=== PATIENT | male | born 1935 | race Caucasian/White ===

== ENCOUNTER 2018-06-09 20:38 | Inpatient (IN) | payer OTHER ==
--- NOTE | 2018-06-09 22:05 | PDOC ---
Attending Attestation - HPI HPI: 06/09/18 23:05 The patient is a 82 year old male, with a significant past medical history of prostate CA s/p prostatectomy, diverticulosis, who presents to the emergency department with 3 days of cramping lower abdominal pain which he reports is 8/ 10 in severity. He reports 2 normal soft brown stools today. He denies blood in his stool. He states he was in urgent care and his BP was elevated. The patient denies chest pain, shortness of breath, headache and dizziness. The patient denies fever, chills, nausea, vomit, diarrhea and constipation. The patient denies dysuria, frequency, urgency and hematuria. Allergies: NKDA PCP: Dr. Mckenna - Physicial Exam PE: 06/09/18 23:06 Constitutional: Awake, alert, oriented. No acute distress. Head: Normocephalic. Atraumatic Eyes: PERRL. EOMI. Conjunctivae are not pale. ENT: Mucous membranes are moist and intact. Posterior pharynx without exudates or erythema. Uvula midline. Neck: Supple. Full ROM. No lymphadenopathy. Cardiovascular: Regular rate. Regular rhythm. S1, S2 regular. Distal pulses are 2+ and symmetric. Pulmonary/Chest: No evidence of respiratory distress. Clear to auscultation bilaterally No wheezing, rales or rhonchi. Abdominal: (+) suprapubic and LLQ tenderness on palpation. Soft and non- distended. No rebound, guarding or rigidity. No organomegaly. No palpable masses. Good bowel sounds. Back: No CVA tenderness. Musculoskeletal: No edema. No cyanosis. No clubbing. Full range of motion in all extremities. Nocalf tenderness. Radial/pedal pulses are intact and 2+ bilaterally Skin: Skin is warm and dry. No petechiae. No purpura. Neurological: Alert and oriented to person, place, and time. Cranial nerves II -XII are grossly intact. Normal speech. Strength is grossly symmetric. No sensory deficits. Psychiatric: Good eye contact. Normal interaction, affect and behavior. - Medical Decision Making 06/09/18 23:06 Documentation prepared by Angela Morataya, acting as medical radiation tech for Apoorva Orr DO <Angela Morataya - Last Filed: 06/09/18 23:05> - Resident Resident Name: Rubi Escobar - ED Attending Attestation I have performed the following: I have examined & evaluated the patient, The case was reviewed & discussed with the resident, I agree w/resident's findings & plan, Exceptions are as noted - Medical Decision Making 06/09/18 22:05 I, Dr. Apoorva Orr, DO, attest that this document has been prepared under my direction and personally reviewed by me in its entirety. I further attest, that it accurately reflects all work, treatment, procedures and medical decision -making performed by me. 06/09/18 23:12 82yo male with lower abd pain -pain onset earlier today with worsening when eating dinner tonight -hx of diverticular disease -felt difficulty with bm today -pt with LLQ and suprapubic abd pain -hx of prostate ca -brown stool, no bleeding, no fevers -ambulates with a steady gait -no cva ttp -will send labs, ct abd/pelvis -will give pain control 06/10/18 01:04 pt with acute diverticulitis on ct will place consult to GI PMD Dr. Mckenna, microblog sent to [facility] for admission 06/10/18 01:25 Dr. Daly at the bedside to eval the patient -accepts pt to service <Apoorva Orr - Last Filed: 06/10/18 01:25>
[2018-06-09] MEDS ORDERED: SODIUM CHLORIDE 1,000 ML IV SCH (22:15)
[2018-06-09] MEDS ORDERED: ACETAMINOPHEN 1000 MG/100 ML VIAL (NON FORMULARY) IVPB ONE (22:15)
--- NOTE | 2018-06-09 22:31 | PDOC ---
History of Present Illness - General Chief Complaint: Pain Stated Complaint: SENT BY PCP Time Seen by Provider: 06/09/18 21:55 History Source: Patient Exam Limitations: No Limitations - History of Present Illness Initial Comments: 06/09/18 22:32 82 year old man with history of HTN, prostate CA, diverticulosis, hypothyroidism , DM who presents with 3 days of waxing and waning cramping lower abdominal pain rated 8/10 to 6/10 that worsened this evening. The patient has had straining with bowel movements today but has had 2 normal soft brown stools. Denies nausea, vomiting, diarrhea, constipation, fever, dysuria, hematuria, retention, incontinence, blood in stool. The patient went to urgent care today and had a urine sample taken, but no blood work and was sent here for abd CT. The patient denies chest pain, shortness of breath, headache, changes in vision or hearing. PSHX: prostectomy, inguinal hernia repair PMHX: as in HPI Past History - Past Medical History Allergies/Adverse Reactions: Allergies Allergy/AdvReac Type Severity Reaction Status Date / Time No Known Allergies Allergy Verified 06/09/18 20:43 Home Medications: Ambulatory Orders Amlodipine Besylate [Norvasc -] 5 mg PO DAILY 10/30/14 Arginine [l-Arginine] 500 mg PO BID 10/30/14 Calcium Carbonate/Vitamin D3 [Vitamin D-3 400 Units Tablet] 1 each PO BID Cranberry Fruit Extract/Vit C [Azo Cranberry Softgel] 1 each PO DAILY 10/30/14 Levocarnitine [l-Carnitine] 500 mg PO DAILY 10/30/14 Levothyroxine [Synthroid -] 125 mcg PO DAILY 10/30/14 Ubidecarenone/Vitamin E Mixed [Coq10 Sg 100 Softgel] 1 each PO DAILY 10/30/14 Anemia: No Asthma: No Cancer: Yes (Prostate) Cardiac Disorders: No CVA: No COPD: No CHF: No Dementia: No Diabetes: No GI Disorders: No Disorders: No HTN: Yes Hypercholesterolemia: No Liver Disease: No Seizures: No Thyroid Disease: Yes - Surgical History Abdominal Surgery: Yes (Bilateral Inguinal Hernia Repair) Appendectomy: No Cardiac Surgery: No Cholecystectomy: No Lung Surgery: No Neurologic Surgery: No Orthopedic Surgery: Yes (Right Rotator Cuff Repair,Right Knee Arthroscopy) - Suicide/Smoking/Psychosocial Hx Smoking History: Never smoked Have you smoked in the past 12 months: No Hx Alcohol Use: Yes (glass of wine a day) Drug/Substance Use Hx: No Substance Use Type: Alcohol Hx Substance Use Treatment: No Review of Systems - Review of Systems Able to Perform ROS?: Yes Is the patient limited Arabic proficient: No Constitutional: No: Chills, Diaphoresis, Fever HEENTM: No: Blurred Vision, Tinnitus Respiratory: No: Cough, Orthopnea, Shortness of Breath Cardiac (ROS): No: Chest Pain, Lightheadedness, Palpitations ABD/GI: Yes: See HPI, Abdominal cramping. No: Constipated, Diarrhea, Nausea, Vomiting : No: Burning, Dysuria, Hematuria Neurological: No: Headache, Numbness, Tingling *Physical Exam - Vital Signs Last Vital Signs Temp Pulse Resp BP Pulse Ox 97.2 F L 76 18 185/90 H 98 06/09/18 20:40 06/09/18 20:40 06/09/18 20:40 06/09/18 20:40 06/09/18 20:40 - Physical Exam Comments: 06/09/18 22:57 GENERAL: Awake, alert, and fully oriented, in no acute distress HEAD: No signs of trauma, normocephalic, atraumatic EYES: EOMI, sclera anicteric, conjunctiva clear ENT: oropharynx clear without exudates. Moist mucosa NECK: Normal ROM, supple LUNGS: No distress, speaks full sentences, clear to auscultation bilaterally HEART: Regular rate and rhythm, normal S1 and S2, no murmurs, rubs or gallops, peripheral pulses normal and equal bilaterally. ABDOMEN: Soft, + tenderness in RLQ, LLQ, normoactive bowel sounds. No guarding , no rebound. No masses EXTREMITIES : Normal inspection, Normal range of motion, no edema. No clubbing or cyanosis. NEUROLOGICAL: Cranial nerves II through XII grossly intact. Normal speech, no focal sensorimotor deficits SKIN: Warm, Dry, normal turgor, no rashes or lesions noted Moderate Sedation - Procedure Monitoring Vital Signs: Procedure Monitoring Vital Signs Temperature 97.2 F L 06/09/18 20:40 Pulse Rate 76 06/09/18 20:40 Respiratory Rate 18 06/09/18 20:40 Blood Pressure 185/90 H 06/09/18 20:40 O2 Sat by Pulse Oximetry (%) 98 06/09/18 20:40 ED Treatment Course - LABORATORY CBC & Chemistry Diagram: 06/09/18 22:48 06/09/18 23:29 Medical Decision Making - Medical Decision Making 06/09/18 22:58 82 year old man with history of HTN, prostate CA, diverticulosis, hypothyroidism , DM who presents with 3 days of waxing and waning cramping lower abdominal pain rated 8/10 to 6/10 that worsened this evening. The patient has had straining with bowel movements today but has had 2 normal soft brown stools. Denies nausea, vomiting, diarrhea, constipation, fever, dysuria, hematuria, retention, incontinence, blood in stool. The patient went to urgent care today and had a urine sample taken, but no blood work and was sent here for abd CT. The patient denies chest pain, shortness of breath, headache, changes in vision or hearing. ED Course: Differential including but not limited to: diverticulitis vs mesenteric ischemia vs colitis. cbc, cmp, ua, ucx, trop, ekg, abdpelvic ct 06/09/18 23:34 cbc: wbc 21 06/10/18 00:53 cmp: elevated BUN, otherwise unremarkable. ua: negative 06/10/18 01:[address]: significant for diverticulitis metronidazole and cipro given EKG: normal sinus rhythm HR 67, no interval abnormalities, narrow QRS, ST and T wave segments and morphology normal. Will admit to medicine for further evaluation and treatment. *DC/Admit/Observation/Transfer Diagnosis at time of Disposition: Diverticulitis - Discharge Dispostion Condition at time of disposition: Stable Decision to Admit order: Yes - Referrals Referrals: Andrew Mckenna MD [Primary Care Provider] - - Patient Instructions - Post Discharge Activity
[2018-06-09] MEDS ORDERED: ACETAMINOPHEN INJECTION 100 ML IVPB ONE (22:58)
[2018-06-09 23:23] LABS: BASO % 0.5 % (0-2.0); EOS % 0.5 % (0-4.5); HEMATOCRIT 45.6 % (35.4-49); HEMOGLOBIN 15.7 GM/dL (11.7-16.9); LYMPH % 7.3 % (8-40); MCH 29.8 pg (25.7-33.7); MCHC 34.4 g/dl (32.0-35.9); MEAN CELL VOLUME 86.4 fl (80-96); MEAN PLT VOLUME 8.4 fl (7.5-11.1); NEUT % 84.7 % (42.8-82.8); PLATELET COUNT 275 K/MM3 (134-434); RBC 5.28 M/mm3 (4.00-5.60); RDW 14.6 % (11.9-15.9); WHITE BLOOD COUNT 21.1 K/mm3 (4.0-10.0)
[2018-06-09 23:48] LABS: URINE APPEARANCE CLEAR; URINE BILIRUBIN NEGATIVE (<2.0 mg/dL); URINE COLOR LTYELLOW; URINE GLUCOSE (UA) NEGATIVE (NEGATIVE); URINE KETONE TRACE (NEGATIVE); URINE LEUK ESTERASE NEGATIVE (NEGATIVE); URINE NITRITE NEGATIVE (NEGATIVE); URINE PROTEIN NEGATIVE (NEGATIVE); URINE UROBILINOGEN NEGATIVE mg/dL (0.2-1.0)
[2018-06-10 00:15] LABS: BLOOD UREA NITROGEN 24 mg/dL (7-18); CHLORIDE 104 mmol/L (98-107); CREATININE 1.1 mg/dL (0.55-1.3); GLUCOSE,RANDOM 129 mg/dL (74-106); POTASSIUM 3.8 mmol/L (3.5-5.1); SODIUM 136 mmol/L (136-145)
[2018-06-10 00:16] LABS: ALBUMIN 2.9 g/dl (3.4-5.0); ALK PHOS 91 U/L (45-117); ANION GAP 9 MMOL/L (8-16); BILIRUBIN,TOTAL 0.4 mg/dL (0.2-1); CALCIUM 8.2 mg/dL (8.5-10.1); CO2 23 mmol/L (21-32); SGOT/AST 18 U/L (15-37); SGPT/ALT 24 U/L (13-61); TOT PROT 5.8 g/dl (6.4-8.2)
[2018-06-10] MEDS ORDERED: CIPROFLOXACIN 400 MG/D5W 400 MG/200 ML IVPB IVPB ONE (01:06)
[2018-06-10] MEDS ORDERED: MORPHINE SULFATE 2 MG/ML VIAL IVPUSH PRN (03:07)
--- NOTE | 2018-06-10 03:21 | HP ---
CHIEF COMPLAINT: PCP:Dr. Mckenna HISTORY OF PRESENT ILLNESS: 82 yo M PMH HTN, prostate CA s/p prostectomy, diverticulosis, hypothyroidism p/ w worsening cramping lower abdominal pain rated 8/10 x3d. Pt endorses eating a lot of food over the the past week, more than usual due to holiday parties. Pt eats a lot of nuts in general. Pt says eating makes his pain worse. The patient has had straining with bowel movements today but has had 2 normal soft brown stools. Denies fevers, cp , sob, ROSADO, n/v/d, constipation, dysuria, hematuria, retention, incontinence, blood in stool. The patient went to urgent care today and had a urine sample taken, but no blood work and was sent here for abd CT. Of note, pt endorses completing yesterday a 5 day course of steroids for tendinitis. ER course was notable for: (1) 1 L NS, tylenol, flagyl (2) CT A/P - sigmoid diverticultitis (3) leukocytosis 21.1, ekg: sinus at 67, Qtc 475, nl axis, nl interval, q waves septally that are age indeterminate, no acute st/t wave findings Recent Travel: PAST MEDICAL HISTORY: diverticulitis x2 episodes in the past PAST SURGICAL HISTORY: Right Rotator Cuff Repair,Right Knee Arthroscopy, Bilateral Inguinal Hernia Repair, prostectomy Social History: Smoking: quit many years ago Alcohol: occasional Drugs: denies Family History: Allergies No Known Allergies Allergy (Verified 06/09/18 20:43) HOME MEDICATIONS: Home Medications Medication Instructions Recorded Amlodipine Besylate [Norvasc -] 5 mg PO DAILY 10/30/14 Arginine [l-Arginine] 500 mg PO BID 10/30/14 Calcium Carbonate/Vitamin D3 1 each PO BID 10/30/14 [Vitamin D-3 400 Units Tablet] Cranberry Fruit Extract/Vit C [Azo 1 each PO DAILY 10/30/14 Cranberry Softgel] Levocarnitine [l-Carnitine] 500 mg PO DAILY 10/30/14 Levothyroxine [Synthroid -] 125 mcg PO DAILY 10/30/14 Ubidecarenone/Vitamin E Mixed 1 each PO DAILY 10/30/14 [Coq10 Sg 100 Softgel] REVIEW OF SYSTEMS as per hpi PHYSICAL EXAMINATION Vital Signs - 24 hr 06/09/18 20:40 Temperature 97.2 F L Pulse Rate 76 Respiratory 18 Rate Blood Pressure 185/90 H O2 Sat by Pulse 98 Oximetry (%) GENERAL: AOX3 HEAD: NCAT EYES: extraocular movements intact, sclera anicteric, conjunctiva clear. No lid lag. EARS, NOSE, THROAT: nares patent, oropharynx clear without exudates. MMM NECK: Normal range of motion, supple without lymphadenopathy, JVD, or masses. LUNGS: CTAB HEART: RRR, normal S1 and S2 without m/r/g ABDOMEN: Soft, TTP diffusely more prominent in lower quadrants + guarding , not distended, hyperactive bowel sounds, no rebound, no masses. MUSCULOSKELETAL: Normal range of motion at all joints. No bony deformities or tenderness. UPPER EXTREMITIES: 2+ pulses, warm, well-perfused. No cyanosis. No clubbing. No peripheral edema. LOWER EXTREMITIES: 2+ pulses, warm, well-perfused. No calf tenderness. No peripheral edema. NEUROLOGICAL: Cranial nerves II-XII intact. Normal speech. PSYCHIATRIC: Cooperative. Good eye contact. Appropriate mood and affect. SKIN: Warm, dry, normal turgor, no rashes or lesions noted, normal capillary refill. Laboratory Results - last 24 hr 06/09/18 06/09/18 06/09/18 22:48 22:48 22:48 WBC 21.1 H RBC 5.28 Hgb 15.7 Hct 45.6 MCV 86.4 MCH 29.8 MCHC 34.4 RDW 14.6 Plt Count 275 MPV 8.4 Absolute Neuts (auto) 17.9 H Total Counted 100 Neutrophils % 84.7 H Neutrophils % (Manual) 84.0 H Band Neutrophils % 1.0 Lymphocytes % 7.3 L Lymphocytes % (Manual) 6.0 L Monocytes % 7.0 Monocytes % (Manual) 5 Eosinophils % 0.5 Eosinophils % (Manual) 1.0 Basophils % 0.5 Basophils % (Manual) 3.0 H Nucleated RBC % 0 Sodium Cancelled Potassium Cancelled Chloride Cancelled Carbon Dioxide Cancelled Anion Gap Cancelled BUN Cancelled Creatinine Cancelled Creat Clearance w eGFR Cancelled Random Glucose Cancelled Lactic Acid Calcium Cancelled Total Bilirubin Cancelled AST Cancelled ALT Cancelled Alkaline Phosphatase Cancelled Troponin I Cancelled Total Protein Cancelled Albumin Cancelled Urine Color Ltyellow Urine Appearance Clear Urine pH 7.0 Ur Specific [place] 1.015 Urine Protein Negative Urine Glucose (UA) Negative Urine Ketones Trace H Urine Blood Negative Urine Nitrite Negative Urine Bilirubin Negative Urine Urobilinogen Negative Ur Leukocyte Esterase Negative 06/09/18 06/09/18 22:48 23:29 WBC RBC Hgb Hct MCV MCH MCHC RDW Plt Count MPV Absolute Neuts (auto) Total Counted Neutrophils % Neutrophils % (Manual) Band Neutrophils % Lymphocytes % Lymphocytes % (Manual) Monocytes % Monocytes % (Manual) Eosinophils % Eosinophils % (Manual) Basophils % Basophils % (Manual) Nucleated RBC % Sodium 136 Potassium 3.8 Chloride 104 Carbon Dioxide 23 Anion Gap 9 BUN 24 H Creatinine 1.1 Creat Clearance w eGFR > 60 Random Glucose 129 H Lactic Acid 1.6 Calcium 8.2 L Total Bilirubin 0.4 AST 18 ALT 24 Alkaline Phosphatase 91 Troponin I Total Protein 5.8 L Albumin 2.9 L Urine Color Urine Appearance Urine pH Ur Specific [place] Urine Protein Urine Glucose (UA) Urine Ketones Urine Blood Urine Nitrite Urine Bilirubin Urine Urobilinogen Ur Leukocyte Esterase ASSESSMENT/PLAN: 82 yo M PMH HTN, prostate CA s/p prostectomy, diverticulosis, hypothyroidism p/ w worsening cramping lower abdominal pain rated 8/10 x3d. Sigmoid diverticulitis - uncomplicated. CT A/P - sigmoid diverticultitis. leukocytosis 21.1 s/p 1 L NS, tylenol, flagyl in ED tx w/ rocephin and flagyl - avoid cipro since he just completed a 5 day course of steroids for tendinitis. transition to PO abx when pt clinically improves and can tolerate PO pain ctl - morphine tylenol uncontrolled hypertension - BP has improved. Will restart his home antihypertensive drugs when can tolerate PO Qtc 475 DM? Check HbA1c. hold PO meds until when can tolerate PO FEN NS 110cc replete prn NPO ppx Lovenox 40 mg SQ qd Full code Dispo med surg Visit type - Emergency Visit Emergency Visit: Yes ED Registration Date: 06/10/18 Care time: The patient presented to the Emergency Department on the above date and was hospitalized for further evaluation of their emergent condition. - New Patient This patient is new to me today: Yes Date on this admission: 06/10/18 - Critical Care Critical Care patient: No
--- NOTE | 2018-06-10 03:23 | PN ---
Teaching Attending Note Name of Resident: Hayden Hall ATTENDING PHYSICIAN STATEMENT I saw and evaluated the patient. I reviewed the resident's note and discussed the case with the resident. I agree with the resident's findings and plan as documented. SUBJECTIVE: Patient is an 82 year old man with history of HTN, prostate CA, diverticulosis, and hypothyroidism who presents with 3 days of waxing and waning cramping lower abdominal pain rated 8/10 to 6/10 that worsened this evening. The patient has had straining with bowel movements today but has had 2 normal soft brown stools. Denies nausea, vomiting, diarrhea, constipation, fever, dysuria, hematuria, retention, incontinence, blood in stool. The patient went to urgent care today and had a urine sample taken, but no blood work and was sent here for abd CT. The patient denies chest pain, shortness of breath, headache, changes in vision or hearing. Just completed a 5 day course of steroids for tendinitis. OBJECTIVE: Alert Vital Signs Period Temp Pulse Resp BP Sys/Fuller Pulse Ox Last 24 Hr 97.2 F 76 18 185/90 98 HEENT: No Jaundice, eye redness or discharge, PERRLA, EOMI. Normocephalic, atraumatic. External ears are normal and hearing is grossly intact. No nasal discharge. Neck: Supple, nontender. No palpable adenopathy or thyromegaly. No JVD Chest: Good effort. Clear to auscultation and percussion. Heart: Regular. No S3, rub or murmur Abdomen: Not distended, soft, mild lower abdominal tenderness and no HSM. No rebound or guarding. Normoactive bowel sounds. Ext: Peripheral pulses intact. No leg edema. Skin: Warm and dry. No petechiae, rash or ecchymosis. Neuro: Alert. Oriented x3. CN 2-12 grossly intact. Sensation grossly intact in all four extremities and DTR are symmetric. Current Medications Generic Name Dose Route Start Last Admin Trade Name Freq PRN Reason Stop Dose Admin Acetaminophen 1,000 mg 06/10/18 03:18 Ofirmev Injection - IVPB Q6H PRN PAIN LEVEL 6-10 Enoxaparin Sodium 40 mg 06/10/18 04:00 Lovenox - SQ DAILY CLAIRE Ceftriaxone Sodium 2 gm/ 100 mls @ 100 mls/hr 06/10/18 10:00 Dextrose IVPB DAILY CLAIRE Metronidazole 500 mg in 100 mls @ 100 mls/hr 06/10/18 10:00 Flagyl 500mg Premixed Ivpb - IVPB Q8H-IV [facility]IRE Sodium Chloride 1,000 mls @ 110 mls/hr 06/10/18 03:15 Normal Saline - IV ASDIR CLAIRE Morphine Sulfate 2 mg 06/10/18 03:07 Morphine Sulfate IVPUSH Q4H PRN PAIN LEVEL 7 - 10 Home Medications Medication Instructions Recorded Amlodipine Besylate [Norvasc -] 5 mg PO DAILY 10/30/14 Arginine [l-Arginine] 500 mg PO BID 10/30/14 Calcium Carbonate/Vitamin D3 1 each PO BID 10/30/14 [Vitamin D-3 400 Units Tablet] Cranberry Fruit Extract/Vit C [Azo 1 each PO DAILY 10/30/14 Cranberry Softgel] Levocarnitine [l-Carnitine] 500 mg PO DAILY 10/30/14 Levothyroxine [Synthroid -] 125 mcg PO DAILY 10/30/14 Ubidecarenone/Vitamin E Mixed 1 each PO DAILY 10/30/14 [Coq10 Sg 100 Softgel] Abnormal Lab Results 06/09/18 06/09/18 06/09/18 22:48 22:48 23:29 WBC 21.1 H Absolute Neuts (auto) 17.9 H Neutrophils % 84.7 H Neutrophils % (Manual) 84.0 H Lymphocytes % 7.3 L Lymphocytes % (Manual) 6.0 L Basophils % (Manual) 3.0 H BUN 24 H Random Glucose 129 H Calcium 8.2 L Total Protein 5.8 L Albumin 2.9 L Urine Ketones Trace H ASSESSMENT AND PLAN: 1. Sigmoid diverticulitis - Confirmed by CT scan. Will treat with rocephin and flagyl - avoid cipro since he just completed a 5 day course of steroids for tendinitis. Check HbAic. 2. Uncontrolled hypertension - BP has improved. Will restart his home antihypertensive drugs to ultimately attain normotension. Nonpharmacologic measures to control hypertension like weight loss, salt restriction and exercise discussed. 3. DVT prophylaxis - Lovenox 40 mg SQ q 24 hours. 4. Advance directives - Full code
[2018-06-10] MEDS: SODIUM CHLORIDE 1,000 ML IV SCH ×2 (04:17→05:50)
[2018-06-10] MEDS: ENOXAPARIN NA (PORCINE) 40 MG/0.4 ML DISP.SYRIN SQ SCH (04:17)
[2018-06-10 06:13] VITALS: BMI 20.9
[2018-06-10 08:09] LABS: BASO % 0.6 % (0-2.0); EOS % 0.9 % (0-4.5); HEMATOCRIT 44.5 % (35.4-49); HEMOGLOBIN 14.1 GM/dL (11.7-16.9); LYMPH % 8.3 % (8-40); MCH 27.7 pg (25.7-33.7); MCHC 31.6 g/dl (32.0-35.9); MEAN CELL VOLUME 87.5 fl (80-96); MEAN PLT VOLUME 8.8 fl (7.5-11.1); NEUT % 82.2 % (42.8-82.8); PLATELET COUNT 248 K/MM3 (134-434); RBC 5.08 M/mm3 (4.00-5.60); RDW 14.5 % (11.9-15.9); WHITE BLOOD COUNT 16.5 K/mm3 (4.0-10.0)
[2018-06-10 08:12] LABS: ALBUMIN 3.2 g/dl (3.4-5.0); ALK PHOS 102 U/L (45-117); ANION GAP 7 MMOL/L (8-16); BILIRUBIN,TOTAL 0.6 mg/dL (0.2-1); BLOOD UREA NITROGEN 20 mg/dL (7-18); CHLORIDE 104 mmol/L (98-107); CO2 28 mmol/L (21-32); CREATININE 1.3 mg/dL (0.55-1.3); GLUCOSE,RANDOM 112 mg/dL (74-106); MAGNESIUM 2.4 mg/dL (1.8-2.4); PHOSPHOROUS 3.2 mg/dL (2.5-4.9); POTASSIUM 3.9 mmol/L (3.5-5.1); SGOT/AST 16 U/L (15-37); SGPT/ALT 22 U/L (13-61); SODIUM 140 mmol/L (136-145); TOT PROT 6.3 g/dl (6.4-8.2)
[2018-06-10] MEDS ORDERED: DEXTROSE 5%-WATER 100 ML IVPB ONE (09:16)
--- NOTE | 2018-06-10 09:16 | EKG ---
Test Reason : Blood Pressure : / mmHG Vent. Rate : 067 BPM Atrial Rate : 067 BPM P-R Int : 154 ms QRS Dur : 124 ms QT Int : 450 ms P-R-T Axes : 023 044 032 degrees QTc Int : 475 ms NORMAL SINUS RHYTHM SEPTAL INFARCT , AGE UNDETERMINED ABNORMAL ECG WHEN COMPARED WITH ECG OF 28-MAR-2003 08:23, QRS DURATION HAS INCREASED SEPTAL INFARCT IS NOW PRESENT T WAVE INVERSION NOW EVIDENT IN ANTERIOR LEADS QT HAS LENGTHENED Confirmed by MARITZA ESPINO, SAROJ ([id number]) on 06/10/2018 9:15:53 AM Referred By: Confirmed By:SAROJ SALAS MD
[2018-06-10] MEDS: ACETAMINOPHEN 1000 MG/100 ML VIAL (NON FORMULARY) IVPB PRN ×2 (09:36→17:27)
[2018-06-10] MEDS ORDERED: CEFTRIAXONE 2 GM in DEXTROSE 5%-WATER 100 ML IVPB SCH (10:00)
--- NOTE | 2018-06-10 11:15 | PN ---
Progress Note, Physician Chief Complaint: Pt sitting in bed in no acute distress. reports mild improvement in abd pain. tolerated clears this am. denies any chest pain, sob, n/v/d - Current Medication List Current Medications: Active Medications Acetaminophen (Ofirmev Injection -) 1,000 mg IVPB Q6H PRN PRN Reason: PAIN LEVEL 6-10 Last Admin: 06/10/18 09:36 Dose: 1,000 mg Amlodipine Besylate (Norvasc -) 2.5 mg PO DAILY [facility] Enoxaparin Sodium (Lovenox -) 40 mg SQ DAILY [facility] Last Admin: 06/10/18 04:17 Dose: 40 mg Ceftriaxone Sodium 2 gm/ (Dextrose) 100 mls @ 100 mls/hr IVPB DAILY [facility] Last Admin: 06/10/18 09:19 Dose: 100 mls/hr Metronidazole (Flagyl 500mg Premixed Ivpb -) 500 mg in 100 mls @ 100 mls/hr IVPB Q8H-IV [facility] Last Admin: 06/10/18 10:23 Dose: 100 mls/hr Sodium Chloride (Normal Saline -) 1,000 mls @ 110 mls/hr IV ASDIR [facility] Last Admin: 06/10/18 05:50 Dose: 110 mls/hr Levothyroxine Sodium (Synthroid -) 125 mcg PO DAILY [facility] Morphine Sulfate (Morphine Sulfate) 2 mg IVPUSH Q4H PRN PRN Reason: PAIN LEVEL 7 - 10 - Objective Vital Signs: Vital Signs Temperature 97.4 F L 06/10/18 06:02 Pulse Rate 63 06/10/18 06:02 Respiratory Rate 20 06/10/18 06:02 Blood Pressure 158/94 06/10/18 06:02 O2 Sat by Pulse Oximetry (%) 97 06/10/18 06:02 Constitutional: Yes: Well Nourished, No Distress, Calm Cardiovascular: Yes: WNL, Regular Rate and Rhythm. No: Murmur Respiratory: Yes: WNL, Regular, CTA Bilaterally. No: Accessory Muscle Use, Rhonchi, SOB, Tachypnea, Wheezes Gastrointestinal: Yes: Normal Bowel Sounds, Soft, Tenderness (LLQ>generalized) Genitourinary: Yes: WNL Extremities: Yes: WNL Edema: No Neurological: Yes: WNL, Alert, Oriented Psychiatric: Yes: WNL, Alert, Oriented Labs: CBC, BMP 06/10/18 07:15 06/10/18 07:15 - ....Imaging Cat Scan: Report Reviewed (sigmoid diverticulitis) Problem List - Problems (1) Diverticulitis Assessment/Plan: improving abd pain better denies n/v wbc count trending down ceftriaxone/flagyl advance diet to fulls transition to po antibx when tolerating regular diet Code(s): K57.92 - DVTRCLI OF INTEST, PART UNSP, W/O PERF OR ABSCESS W/O BLEED (2) Leukocytosis Assessment/Plan: improving as above Code(s): D72.829 - ELEVATED WHITE BLOOD CELL COUNT, UNSPECIFIED (3) HTN (hypertension) Assessment/Plan: controlled continue amlodipine Code(s): I10 - ESSENTIAL (PRIMARY) HYPERTENSION Qualifiers: Hypertension type: essential hypertension Qualified Code(s): I10 - Essential (primary) hypertension (4) Hypothyroid Assessment/Plan: stable continue synthroid Code(s): E03.9 - HYPOTHYROIDISM, UNSPECIFIED
[2018-06-10] MEDS: amLODIPine BESYLATE 2.5 MG TABLET (FP) PO SCH (12:03)
[2018-06-11] MEDS ORDERED: LEVOTHYROXINE NA 125 MCG TABLET (FP) PO SCH (07:00)
[2018-06-11 08:28] LABS: BASO % 0.5 % (0-2.0); EOS % 1.8 % (0-4.5); HEMATOCRIT 42.2 % (35.4-49); HEMOGLOBIN 13.6 GM/dL (11.7-16.9); LYMPH % 11.7 % (8-40); MCH 28.5 pg (25.7-33.7); MCHC 32.2 g/dl (32.0-35.9); MEAN CELL VOLUME 88.3 fl (80-96); MEAN PLT VOLUME 8.7 fl (7.5-11.1); MONO % 8.2 % (3.8-10.2); NEUT % 77.8 % (42.8-82.8); PLATELET COUNT 212 K/MM3 (134-434); RBC 4.78 M/mm3 (4.00-5.60); RDW 14.4 % (11.9-15.9); WHITE BLOOD COUNT 14.2 K/mm3 (4.0-10.0)
[2018-06-11 09:09] LABS: ANION GAP 8 MMOL/L (8-16); BLOOD UREA NITROGEN 15 mg/dL (7-18); CALCIUM 8.8 mg/dL (8.5-10.1); CHLORIDE 102 mmol/L (98-107); CO2 26 mmol/L (21-32); CREATININE 1.3 mg/dL (0.55-1.3); GLUCOSE,RANDOM 89 mg/dL (74-106); MAGNESIUM 2.2 mg/dL (1.8-2.4); PHOSPHOROUS 2.9 mg/dL (2.5-4.9); POTASSIUM 3.9 mmol/L (3.5-5.1); SODIUM 136 mmol/L (136-145)
[2018-06-11] MEDS: amLODIPine BESYLATE 2.5 MG TABLET (FP) PO SCH (10:47)
[2018-06-11] MEDS: ENOXAPARIN NA (PORCINE) 40 MG/0.4 ML DISP.SYRIN SQ SCH (10:47)
--- NOTE | 2018-06-11 11:47 | DS ---
Physical Exam: SUBJECTIVE: Patient seen and examined, ambulating in hallway, no concerns. Tolerating diet well. No nausea, vomiting or diarrhea. Overall feels well. OBJECTIVE: Vital Signs Period Temp Pulse Resp BP Sys/Fuller Pulse Ox Last 24 Hr 98 F-99.0 F 68-72 18-18 142-152/80-84 96 PHYSICAL EXAM GENERAL: The patient is awake, alert, and fully oriented, in no acute distress. HEAD: Normal with no signs of trauma. EYES: PERRL, extraocular movements intact, sclera anicteric, conjunctiva clear. ENT: Ears normal, nares patent, oropharynx clear without exudates, moist mucous membranes. NECK: Trachea midline, full range of motion, supple. LUNGS: Breath sounds equal, clear to auscultation bilaterally, no wheezes, no crackles, no accessory muscle use. HEART: Regular rate and rhythm, S1, S2 ABDOMEN: Soft, mild LLQ tenderness, positive bowel sounds, no voluntary or involuntary guarding or rigidity. EXTREMITIES: 2+ pulses, warm, well-perfused, no edema. NEUROLOGICAL: Cranial nerves II through XII grossly intact. Normal speech, gait normal PSYCH: Normal mood, normal affect. SKIN: Warm, dry, normal turgor, no rashes or lesions noted. LABS Laboratory Results - last 24 hr 06/10/18 06/11/18 06/11/18 07:15 07:30 07:30 WBC 14.2 H RBC 4.78 Hgb 13.6 Hct 42.2 MCV 88.3 MCH 28.5 MCHC 32.2 RDW 14.4 Plt Count 212 MPV 8.7 Absolute Neuts (auto) 11.0 H Neutrophils % 77.8 Lymphocytes % 11.7 D Monocytes % 8.2 Eosinophils % 1.8 D Basophils % 0.5 Nucleated RBC % 0 Sodium 136 Potassium 3.9 Chloride 102 Carbon Dioxide 26 Anion Gap 8 BUN 15 Creatinine 1.3 Creat Clearance w eGFR 52.85 Random Glucose 89 Calcium 8.8 Phosphorus 2.9 Magnesium 2.2 C-Reactive Protein 4.[address] A/P -The lung bases are clear. The liver, spleen, pancreas, adrenal glands and kidneys demonstrate no significant abnormalities. There is a tiny hypodensity within the dome of the liver posteriorly that most likely is benign in nature. However, it is too small to accurately characterize. The gallbladder is clear. There is no evidence of intra-abdominal or retroperitoneal lymphadenopathy or fluid collections. There is no evidence of pneumoperitoneum, bowel obstruction or intra-abdominal abscess. There is no CT evidence of acute appendicitis. There is thickening and irregularity of the mid sigmoid colon with inflammatory changes in the adjacent mesenteric fat. This appearance is consistent with acute diverticulitis. No abscess is associated with this process. Examination of the pelvis demonstrates no evidence of pelvic masses, fluid collections or lymphadenopathy. There is no evidence of acute bony abnormalities. IMPRESSION: Findings consistent with acute sigmoid diverticulitis without abscess formation. Clinical correlation and follow-up recommended. Please see above discussion. Microbiology 06/09/18 22:48 Urine - Urine Clean Catch Urine Culture - Final NO GROWTH OBTAINED HOSPITAL COURSE: Date of Admission:06/10/18 Date of Discharge: 06/11/18 Minutes to complete discharge: 40 Discharge Summary Reason For Visit: DIVERTICULITIS Current Active Problems Diverticulitis (Acute) HTN (hypertension) (Acute) Hypothyroid (Acute) Leukocytosis (Acute) Hospital Course: 82 yo M PMH HTN, prostate CA s/p prostectomy, diverticulosis, hypothyroidism, recent tendinitis p/w worsening cramping lower abdominal pain found with acute uncomplicated sigmoid diverticulitis on CT. He was placed on ceftriaxone and flagyl , his symptoms markedly improved, diet was advanced and he is tolerating solid diet well with no concerns. His WBC count improved and no nausea, vomitting or diarrhea during is stay. He will be discharged on 1 week of augmentin and flagyl. He is advised outpatient colonscopy in 6-8 weeks. Condition: Good - Instructions Diet, Activity, Other Instructions: MEDICATION: Antibiotics augmentin and flagyl as directed for 7 days Continue home medications as before DIET: Soft low residue (avoid nuts/seeds) till symptoms fully resolve, then high fiber diet. ACTIVITY: As tolerated FOLLOW UP; You will need outpatient colonoscopy in 6- 8 weeks once symptoms fully resolved. Please discuss with your doctor for outpatient Gastroenterology referral. Primary care doctor follow up in 1 week. If you notice any new fevers, worsening pain, nausea, vomiting, inability to keep food down, or any new concerns, please call 911 or come to ED immediately. Referrals: Andrew Mckenna MD [Primary Care Provider] - Disposition: HOME - Home Medications Comprehensive Discharge Medication List: Ambulatory Orders Amlodipine Besylate [Norvasc -] 2.5 mg PO DAILY 10/30/14 Arginine [l-Arginine] 500 mg PO BID 10/30/14 Calcium Carbonate/Vitamin D3 [Vitamin D-3 400 Units Tablet] 1 each PO BID Cranberry Fruit Extract/Vit C [Azo Cranberry Softgel] 1 each PO DAILY 10/30/14 Levocarnitine [l-Carnitine] 500 mg PO DAILY 10/30/14 Levothyroxine [Synthroid -] 125 mcg PO DAILY 10/30/14 Ubidecarenone/Vitamin E Mixed [Coq10 Sg 100 Softgel] 1 each PO DAILY 10/30/14 Amoxicillin/Potassium Clav [Augmentin 875-125 Tablet] 1 each PO BID #14 tablet 06/11/18 metroNIDAZOLE [Flagyl -] 500 mg PO TID #21 tablet 06/11/18 This patient is new to me today: Yes Date on this admission: 06/11/18 Emergency Visit: No Critical Care patient: No - Discharge Referral Referred to [facility] No
[2018-06-11 12:57] VITALS: BP 139/74; PULSE 72; TEMP 98.1
== END 2018-06-11 12:45 | disposition home or self-care (01) | DRG 392 ==
LOC: JER 20:38 → JERBED 06-10 01:25 → J6S 06-10 05:19
PROVIDERS: ADMIT Internal Medicine; ATTEND Hospitalist
DX: K57.32 Diverticulitis of large intestine without perforation or abscess without bleeding (principal); I10 Essential (primary) hypertension; D72.829 Elevated white blood cell count, unspecified; E03.9 Hypothyroidism, unspecified; Z85.46 Personal history of malignant neoplasm of prostate; Z90.79 Acquired absence of other genital organ(s); Z87.891 Personal history of nicotine dependence
CPT/HCPCS: 36415; 74177-TC; 80048; 80053; 81003; 83036; 83605; 83735; 84100; 85025; 86140; 87086; 93005; 93010; 99283-25; J0131; J7030

== ENCOUNTER 2019-01-25 05:55 | Day surgery (SDC) | payer OTHER ==
[2019-01-19 15:08] VITALS: BMI 23.5
[2019-01-25] MEDS ORDERED: TAMSULOSIN HCL 0.4 MG CAP ONE (06:39)
[2019-01-25] MEDS ORDERED: BUPIVACAINE HCL/PF 0.5% (5 MG/ML) 30 ML VIAL IJ ONE (07:25)
[2019-01-25] MEDS ORDERED: SODIUM CHLORIDE 0.9% P/F 10 ML VIAL IJ ONE (07:26)
[2019-01-25] MEDS ORDERED: MIDAZOLAM HCL 2 MG/2 ML SINGLE DOSE VIAL ONE (07:26)
[2019-01-25] MEDS ORDERED: PROPOFOL 20 ML ONE (07:56)
[2019-01-25] MEDS ORDERED: ROCURONIUM BROMIDE 50 MG/5 ML SYRINGE ONE ×2 (07:56→09:05)
[2019-01-25] MEDS ORDERED: fentaNYL CITRATE 250 MCG/5 ML VIAL ONE (07:56)
[2019-01-25] MEDS ORDERED: SUCCINYLCHOLINE CHLORIDE 200 MG/10 ML SYRINGE ONE (07:56)
[2019-01-25] MEDS ORDERED: ceFAZolin SODIUM 1 GM VIAL IVPB ONE (08:07)
[2019-01-25] MEDS ORDERED: ONDANSETRON 4 MG/2 ML VIAL ONE (08:12)
[2019-01-25] MEDS ORDERED: KETOROLAC TROMETHAMINE 30 MG/1 ML VIAL ONE (08:12)
[2019-01-25] MEDS ORDERED: DEXAMETHASONE SOD PHOSPHATE 4 MG/1 ML VIAL ONE (08:12)
[2019-01-25] MEDS ORDERED: LIDOCAINE HCL/PF 2% SDV 5ML VIAL ONE (08:12)
[2019-01-25] MEDS ORDERED: ceFAZolin SODIUM 1 GM VIAL ONE (08:12)
[2019-01-25] MEDS ORDERED: LIDOCAINE HCL 2% JELLY (5 ML/TUBE) ONE (08:12)
[2019-01-25] MEDS ORDERED: ePHEDrine SULFATE 50 MG/1 ML AMPULE ONE (08:15)
[2019-01-25] MEDS ORDERED: NEOSTIGMINE METHYLSULFATE 0.5 MG/ML - 10 ML MDV ONE (09:05)
[2019-01-25] MEDS ORDERED: GLYCOPYRROLATE 0.2 MG/1 ML VIAL ONE (09:05)
[2019-01-25] MEDS ORDERED: oxyCODONE HCL 5 MG TABLET ONE (11:18)
[2019-01-25] MEDS ORDERED: ONDANSETRON 4 MG/2 ML VIAL IVPUSH PRN (12:18)
[2019-01-25] MEDS ORDERED: oxyCODONE HCL 5 MG TABLET PO PRN ×2 (12:18)
[2019-01-25] MEDS ORDERED: PROMETHAZINE HCL 25 MG/1 ML VIAL IVPB PRN (12:18)
[2019-01-25 15:21] VITALS: BP 124/74; PULSE 57; TEMP 97.7
--- NOTE | 2019-01-25 22:55 | OP ---
DATE OF OPERATION: 01/25/2019 PREOPERATIVE DIAGNOSIS: Recurrent, incarcerated left inguinal hernia. POSTOPERATIVE DIAGNOSIS: Recurrent, incarcerated left inguinal hernia (direct and femoral components). PROCEDURE: Open repair of recurrent, incarcerated left inguinal hernia with mesh/intermediate wound closure (8 cm). OPERATING SURGEON: Vi Quinn MD ROUTING CLERK: Jake Hendricks MD ANESTHESIA: Freddie Mayer MD (general) HISTORY: This is an 83-year-old man who had undergone a remote open left inguinal hernia repair in the 1950s. He has also had a radical prostatectomy. More recently, he developed pain at the level of the left groin after playing tennis. It was initially difficult to examine him, but after the acute episode resolved, he was left with a mass at the level of the left groin, which, on CT scan, was consistent with a fat-containing hernia. Patient presents to undergo definitive management. DESCRIPTION OF PROCEDURE: With the patient in the supine position, and after general anesthesia, the left groin was prepped and draped in sterile fashion using chlorhexidine. An 8-cm left groin incision was made in the pre-existing scar and deepened into the subcutaneous space. The subcutaneous fat and scar tissue were divided, ultimately arriving at the external oblique aponeurosis. The external oblique aponeurosis was opened in the direction of its fibers through the external ring. There was significant scarring in the inguinal canal. No ilioinguinal nerve could be identified amidst the scarring. Exploration initially revealed an incarcerated direct inguinal hernia at the level of the distal floor. There was also a very capacious internal ring. The attenuated transversalis fascia was divided throughout its entire length after mobilization of the cord which was very atrophic and densely adherent to the shelving edge of the inguinal ligament. The preperitoneal tissues were further reduced, reducing the direct component. The patient is quite thin, and there was significant laxity of the femoral ring appreciated as well. Difficult to ascertain whether this was a true femoral hernia. Nonetheless, a small plug was placed in the femoral canal from the medial approach. A large Davol plug was then placed in the preperitoneal space and fashioned circumferentially using interrupted 2-0 Prolene sutures. The attenuated transversalis fascia was then imbricated in 2 layers over the Davol plug, using 2-0 Prolene suture. The suture began at the level of the pubic tubercle, progressed superiorly, and reconstructed the internal ring to permit only fingertip entrance and then returned to the pubic tubercle where it was tied to itself. A 4 x 6 cm piece of ProGrip mesh was then placed over the inguinal canal. It was keyholed superiorly where it was wrapped around the cord. The external oblique aponeurosis was then closed using interrupted 3-0 Vicryl sutures. After adequate hemostasis, the wound was closed in layers. Nga fascia was approximated using interrupted 3-0 chromic suture. Subcuticular layer was approximated with interrupted 4-0 Biosyn suture. The skin edges were approximated using metallic clips. COUNT: Needle, sponge, and instrument count correct. ESTIMATED BLOOD LOSS: Minimal. SPECIMEN: None. DRAINS: None. Patient tolerated the procedure and was transferred from the OR. VI QUINN M.D. [id number] cc: Andrew Mckenna MD MTDD
== END 2019-01-25 15:05 | disposition home or self-care (01) ==
LOC: FASU 05:55
PROVIDERS: ATTEND Surgery
PROC: 0YU60JZ Supplement Left Inguinal Region with Synthetic Substitute, Open Approach (ICD-10-PCS; principal; 2019-01-25 08:00)
DX: K40.31 Unilateral inguinal hernia, with obstruction, without gangrene, recurrent (principal)
CPT/HCPCS: 94760

== ENCOUNTER 2020-09-28 06:53 | Emergency (ER) | payer OTHER ==
[2020-09-28 07:07] VITALS: BP 164/94; PULSE 65; TEMP 97.7; BMI 23.5
[2020-09-28] MEDS ORDERED: SODIUM CHLORIDE 0.9% 1000 ML INFUS.BAG IV ONE (07:18)
[2020-09-28] MEDS ORDERED: ACETAMINOPHEN 1000 MG/100 ML VIAL (NON FORMULARY) IVPB ONE (07:18)
[2020-09-28] MEDS ORDERED: MAG HYDROX/AL HYDROX/SIMETH 30 ML UNIT-DOSE CUP PO ONE (07:18)
[2020-09-28] MEDS ORDERED: ACETAMINOPHEN INJECTION 100 ML IVPB ONE (07:43)
[2020-09-28] MEDS ORDERED: MAG HYDROX/AL HYDROX/SIMETH 30 ML UNIT-DOSE CUP ONE (07:43)
[2020-09-28 08:24] LABS: RDW 13.1 % (11.9-15.9); WHITE BLOOD COUNT 11.4 K/mm3 (4.0-10.8)
[2020-09-28 08:27] LABS: HEMATOCRIT 43.6 % (35.4-49); MCH 30.4 pg (25.7-33.7); MCHC 34.5 g/dl (32.0-35.9); MEAN CELL VOLUME 88.1 fl (80-96); MEAN PLT VOLUME 9.2 fl (7.5-11.1); PLATELET COUNT 226 K/MM3 (134-434); RBC 4.95 M/mm3 (4.00-5.60)
[2020-09-28 08:32] LABS: ALBUMIN 4.2 g/dl (3.4-5.0); BILIRUBIN,TOTAL 0.6 mg/dl (0.2-1); CALCIUM 9.8 mg/dl (8.5-10); CREATININE 1.2 mg/dl (0.55-1.3); TOT PROT 7.1 g/dl (6.4-8.2)
[2020-09-28 09:32] LABS: PLATELET ESTIMATE ADEQUATE
[2020-09-28] MEDS ORDERED: metroNIDAZOLE 250 MG TABLET PO ONE (09:59)
[2020-09-28] MEDS ORDERED: levoFLOXacin 750 MG TABLET PO SCH (10:00)
[2020-09-28] MEDS ORDERED: metroNIDAZOLE 250 MG TABLET ONE (10:25)
== END 2020-09-28 10:30 | disposition home or self-care (01) ==
LOC: FER 06:53
PROC: 3E033NZ Introduction of Analgesics, Hypnotics, Sedatives into Peripheral Vein, Percutaneous Approach (ICD-10-PCS; principal; 2020-09-28)
DX: K57.92 Diverticulitis of intestine, part unspecified, without perforation or abscess without bleeding (principal)
CPT/HCPCS: 36415; 74177-TC; 80053; 81003; 81015; 83605; 83690; 85025; 99285-25; J0131; Q9967

== ENCOUNTER 2021-03-06 04:50 | Day surgery (SDC) | payer OTHER ==
[2021-03-04 15:18] VITALS: BMI 23.5
[2021-03-06 11:39] VITALS: TEMP 97.3
[2021-03-06 12:05] VITALS: BP 151/72
[2021-03-06 12:34] VITALS: PULSE 55
== END 2021-03-06 12:53 | disposition home or self-care (01) ==
LOC: JASU-ENDO 04:50
PROVIDERS: ATTEND Internal Medicine Gastroenterology
PROC: 0DJD8ZZ Inspection of Lower Intestinal Tract, Via Natural or Artificial Opening Endoscopic (ICD-10-PCS; principal; 2021-03-06 11:10)
DX: Z12.11 Encounter for screening for malignant neoplasm of colon (principal)

== ENCOUNTER 2021-05-22 10:26 | Inpatient (IN) | payer OTHER ==
[2021-05-22 12:02] LABS: ALBUMIN 3.1 g/dl (3.4-5.0); BILIRUBIN,TOTAL 0.6 mg/dl (0.2-1); CALCIUM 9.4 mg/dl (8.5-10); CREATININE 1.3 mg/dl (0.55-1.3); TOT PROT 6.1 g/dl (6.4-8.2)
[2021-05-22 12:40] LABS: EOS % 3.4 % (0-4.5); HEMATOCRIT 36.3 % (35.4-49); HEMOGLOBIN 12.3 GM/dL (11.7-16.9); MCH 28.1 pg (25.7-33.7); MCHC 33.8 g/dl (32.0-35.9); MEAN PLT VOLUME 8.7 fl (7.5-11.1); MONO % 11.1 % (3.8-10.2); NEUT % 77.5 % (42.8-82.8); PLATELET COUNT 269 10^3/uL (134-434); RBC 4.37 M/mm3 (4.00-5.60); RDW 14.4 % (11.9-15.9); WHITE BLOOD COUNT 8.1 K/mm3 (4.0-10.0)
[2021-05-23 04:07] VITALS: BMI 23.4
[2021-05-23] MEDS: HEPARIN NA (PORCINE) 5,000 UNITS/ML 1ML VIAL SQ SCH ×4 (06:50→14:00)
[2021-05-23] MEDS: LEVOTHYROXINE NA 125 MCG TABLET (FP) PO SCH (06:51)
[2021-05-23 09:07] LABS: BASO % 1.1 % (0-2.0); EOS % 5.8 % (0-4.5); HEMATOCRIT 36.9 % (35.4-49); HEMOGLOBIN 12.5 GM/dL (11.7-16.9); LYMPH % 6.4 % (8-40); MCHC 33.7 g/dl (32.0-35.9); MEAN CELL VOLUME 83.1 fl (80-96); MEAN PLT VOLUME 8.6 fl (7.5-11.1); MONO % 10.5 % (3.8-10.2); NEUT % 76.2 % (42.8-82.8); PLATELET COUNT 271 10^3/uL (134-434); RBC 4.45 M/mm3 (4.00-5.60); RDW 14.2 % (11.9-15.9); WHITE BLOOD COUNT 8.7 K/mm3 (4.0-10.0)
[2021-05-23 09:30] LABS: BLOOD UREA NITROGEN 17.9 mg/dL (7-18); CALCIUM 9.4 mg/dL (8.5-10.1)
[2021-05-23 09:31] LABS: ALBUMIN 2.6 g/dl (3.4-5.0); MAGNESIUM 2.3 mg/dL (1.8-2.4)
[2021-05-23 09:34] LABS: CREATININE 1.1 mg/dL (0.55-1.3)
[2021-05-23 09:35] LABS: BILIRUBIN,TOTAL 0.4 mg/dL (0.2-1); TOT PROT 6.6 g/dl (6.4-8.2)
[2021-05-23] MEDS: amLODIPine BESYLATE 5 MG TABLET (FP) PO SCH (09:40)
[2021-05-23 16:57] LABS: INR 1.26 (0.83-1.09); PROTHROMBIN TIME (PATIENT) 14.1 SEC (9.7-13.0)
[2021-05-23 17:46] LABS: BF WBC & OTHER NUCLEATED CELLS 3768 /mm3
[2021-05-23 17:55] LABS: BODY FLUID MONOCYTE 10 %; BODYL FLD EOSINOPHIL 3 %
[2021-05-23 17:56] LABS: BODY FLUID MACROPHAGES 5 %
[2021-05-24] MEDS: LEVOTHYROXINE NA 125 MCG TABLET (FP) PO SCH (06:24)
[2021-05-24] MEDS: amLODIPine BESYLATE 5 MG TABLET (FP) PO SCH (09:23)
[2021-05-24 10:35] LABS: BASO % 0.9 % (0-2.0); EOS % 3.6 % (0-4.5); HEMOGLOBIN 12.3 GM/dL (11.7-16.9); LYMPH % 6.1 % (8-40); MCH 28.8 pg (25.7-33.7); MCHC 34.3 g/dl (32.0-35.9); MEAN CELL VOLUME 84.2 fl (80-96); MEAN PLT VOLUME 8.7 fl (7.5-11.1); MONO % 9.3 % (3.8-10.2); NEUT % 80.1 % (42.8-82.8); PLATELET COUNT 286 10^3/uL (134-434); RBC 4.28 M/mm3 (4.00-5.60); RDW 14.4 % (11.9-15.9)
[2021-05-24 11:01] LABS: MAGNESIUM 2.2 mg/dL (1.8-2.4)
[2021-05-24 11:04] LABS: PHOSPHOROUS 3.2 mg/dL (2.5-4.9)
[2021-05-24] MEDS: ENOXAPARIN NA (PORCINE) 40 MG/0.4 ML DISP.SYRIN SQ SCH (11:07)
[2021-05-25] MEDS: LEVOTHYROXINE NA 125 MCG TABLET (FP) PO SCH (06:20)
[2021-05-25] MEDS: amLODIPine BESYLATE 5 MG TABLET (FP) PO SCH (10:33)
[2021-05-25] MEDS: ENOXAPARIN NA (PORCINE) 40 MG/0.4 ML DISP.SYRIN SQ SCH (10:33)
[2021-05-25 11:39] LABS: EOS % 4.2 % (0-4.5); HEMATOCRIT 38.3 % (35.4-49); HEMOGLOBIN 13.3 GM/dL (11.7-16.9); LYMPH % 6.8 % (8-40); MCHC 34.6 g/dl (32.0-35.9); MEAN CELL VOLUME 83.7 fl (80-96); MEAN PLT VOLUME 8.4 fl (7.5-11.1); MONO % 10.5 % (3.8-10.2); NEUT % 78.5 % (42.8-82.8); PLATELET COUNT 300 10^3/uL (134-434); RBC 4.58 M/mm3 (4.00-5.60); RDW 14.3 % (11.9-15.9); WHITE BLOOD COUNT 10.5 K/mm3 (4.0-10.0)
[2021-05-25 11:55] LABS: BLOOD UREA NITROGEN 19.5 mg/dL (7-18); CALCIUM 9.2 mg/dL (8.5-10.1); MAGNESIUM 2.2 mg/dL (1.8-2.4)
[2021-05-25 11:58] LABS: PHOSPHOROUS 3.3 mg/dL (2.5-4.9)
[2021-05-25 11:59] LABS: CREATININE 1.3 mg/dL (0.55-1.3)
[2021-05-25] MEDS ORDERED: MELATONIN 5 MG TABLETS PO PRN (20:26)
[2021-05-26] MEDS: LEVOTHYROXINE NA 125 MCG TABLET (FP) PO SCH (06:02)
[2021-05-26] MEDS: ENOXAPARIN NA (PORCINE) 40 MG/0.4 ML DISP.SYRIN SQ SCH (09:39)
[2021-05-26] MEDS: amLODIPine BESYLATE 5 MG TABLET (FP) PO SCH (09:40)
[2021-05-26 11:06] LABS: BLOOD UREA NITROGEN 21.1 mg/dL (7-18); CALCIUM 9.3 mg/dL (8.5-10.1); MAGNESIUM 2.4 mg/dL (1.8-2.4)
[2021-05-26 11:07] LABS: BASO % 0.9 % (0-2.0); EOS % 4.5 % (0-4.5); HEMATOCRIT 39.1 % (35.4-49); HEMOGLOBIN 13.1 GM/dL (11.7-16.9); LYMPH % 7.3 % (8-40); MCH 28.1 pg (25.7-33.7); MCHC 33.5 g/dl (32.0-35.9); MEAN PLT VOLUME 8.7 fl (7.5-11.1); MONO % 10.4 % (3.8-10.2); NEUT % 76.9 % (42.8-82.8); PLATELET COUNT 320 10^3/uL (134-434); RBC 4.65 M/mm3 (4.00-5.60); RDW 14.2 % (11.9-15.9); WHITE BLOOD COUNT 10.5 K/mm3 (4.0-10.0)
[2021-05-26 11:09] LABS: PHOSPHOROUS 3.2 mg/dL (2.5-4.9)
[2021-05-26 11:10] LABS: CREATININE 1.2 mg/dL (0.55-1.3)
[2021-05-27] MEDS: LEVOTHYROXINE NA 125 MCG TABLET (FP) PO SCH (06:16)
[2021-05-27] MEDS: ENOXAPARIN NA (PORCINE) 40 MG/0.4 ML DISP.SYRIN SQ SCH (09:10)
[2021-05-27] MEDS: amLODIPine BESYLATE 5 MG TABLET (FP) PO SCH (09:14)
[2021-05-27 10:02] LABS: CALCIUM 9.7 mg/dL (8.5-10.1); PHOSPHOROUS 3.2 mg/dL (2.5-4.9)
[2021-05-27 10:03] LABS: ALBUMIN 2.7 g/dl (3.4-5.0); MAGNESIUM 2.4 mg/dL (1.8-2.4)
[2021-05-27 10:04] LABS: BILIRUBIN,TOTAL 0.5 mg/dL (0.2-1); CREATININE 1.2 mg/dL (0.55-1.3); TOT PROT 6.8 g/dl (6.4-8.2)
[2021-05-27 10:10] LABS: EOS % 5.3 % (0-4.5); HEMATOCRIT 39.6 % (35.4-49); HEMOGLOBIN 13.1 GM/dL (11.7-16.9); LYMPH % 6.8 % (8-40); MEAN CELL VOLUME 84.8 fl (80-96); MEAN PLT VOLUME 8.8 fl (7.5-11.1); MONO % 10.6 % (3.8-10.2); NEUT % 76.3 % (42.8-82.8); PLATELET COUNT 317 10^3/uL (134-434); RBC 4.67 M/mm3 (4.00-5.60); RDW 14.9 % (11.9-15.9); WHITE BLOOD COUNT 9.2 K/mm3 (4.0-10.0)
[2021-05-27 14:17] LABS: BODY FLUID ALBUMIN 2.5 g/dL (Not Estab.)
[2021-05-28 03:28] VITALS: PULSE 64
[2021-05-28] MEDS: LEVOTHYROXINE NA 125 MCG TABLET (FP) PO SCH (05:59)
[2021-05-28 09:02] LABS: ALBUMIN 2.7 g/dl (3.4-5.0)
[2021-05-28 09:03] LABS: CALCIUM 9.6 mg/dL (8.5-10.1); MAGNESIUM 2.3 mg/dL (1.8-2.4)
[2021-05-28 09:05] LABS: CREATININE 1.1 mg/dL (0.55-1.3); PHOSPHOROUS 3.2 mg/dL (2.5-4.9)
[2021-05-28 09:07] LABS: BILIRUBIN,TOTAL 0.5 mg/dL (0.2-1); TOT PROT 6.6 g/dl (6.4-8.2)
[2021-05-28 09:37] LABS: BASO % 0.8 % (0-2.0); EOS % 6.6 % (0-4.5); HEMATOCRIT 37.6 % (35.4-49); HEMOGLOBIN 12.6 GM/dL (11.7-16.9); LYMPH % 9.6 % (8-40); MCH 28.2 pg (25.7-33.7); MCHC 33.4 g/dl (32.0-35.9); MEAN CELL VOLUME 84.3 fl (80-96); MONO % 9.1 % (3.8-10.2); NEUT % 73.9 % (42.8-82.8); PLATELET COUNT 300 10^3/uL (134-434); RBC 4.46 M/mm3 (4.00-5.60); RDW 14.8 % (11.9-15.9); WHITE BLOOD COUNT 8.7 K/mm3 (4.0-10.0)
[2021-05-28] MEDS: ENOXAPARIN NA (PORCINE) 40 MG/0.4 ML DISP.SYRIN SQ SCH (09:54)
[2021-05-28] MEDS: amLODIPine BESYLATE 5 MG TABLET (FP) PO SCH (09:54)
[2021-05-28 13:55] VITALS: TEMP 98
[2021-05-28 14:12] VITALS: BP 134/66
== END 2021-05-28 18:17 | disposition home or self-care (01) | DRG 188 ==
LOC: FER 10:26 → J6S 05-23 03:00
PROVIDERS: ADMIT Internal Medicine; ATTEND Internal Medicine
PROC: 0W9930Z Drainage of Right Pleural Cavity with Drainage Device, Percutaneous Approach (ICD-10-PCS; principal; 2021-05-23)
DX: J90 Pleural effusion, not elsewhere classified (principal); E03.9 Hypothyroidism, unspecified; I10 Essential (primary) hypertension; R42 Dizziness and giddiness; F12.90 Cannabis use, unspecified, uncomplicated; G47.33 Obstructive sleep apnea (adult) (pediatric)
CPT/HCPCS: 32557; 36415; 71045-TC-FY; 71046-TC-FY; 71275-TC; 74176-TC; 80048; 80053; 81003; 81015; 82042; 82150; 82550; 82945; 83615; 83735; 83986; 84100; 84157; 84439; 84443; 84478; 84484; 85025; 85610; 87070; 87075; 87086; 87102; 87116; 87205; 87206; 87210; 88108; 88305-TC; 93005; 93306-TC; 94010; 97116-GP; 97161-GP; 99285-25; C9803; J1644; Q9967; U0003; U0005

== ENCOUNTER 2021-09-21 14:05 | Emergency (ER) | payer OTHER ==
[2021-09-21 14:26] VITALS: BP 179/74; PULSE 56; TEMP 97.8; BMI 24.0
== END 2021-09-21 15:30 | disposition home or self-care (01) ==
LOC: FER 14:05
DX: S86.912A Strain of unspecified muscle(s) and tendon(s) at lower leg level, left leg, initial encounter (principal); Y93.73 Activity, racquet and hand sports
CPT/HCPCS: 73562-TC-LT-FY; 99283-25

== ENCOUNTER 2022-02-20 06:58 | Day surgery (SDC) | payer OTHER ==
[2022-02-19 09:08] VITALS: BMI 21.7
[2022-02-20] MEDS ORDERED: LIDOCAINE HCL 2% 100 MG/5 ML DISP.SYRIN ONE (08:17)
[2022-02-20] MEDS ORDERED: PROPOFOL 20 ML ONE (08:17)
[2022-02-20] MEDS ORDERED: MIDAZOLAM HCL 2 MG/2 ML SINGLE DOSE VIAL ONE (08:17)
[2022-02-20] MEDS ORDERED: BUPIVACAINE HCL/PF 2.5 MG/ML - 30 ML VIAL IJ ONE (08:22)
[2022-02-20] MEDS ORDERED: ceFAZolin SODIUM 1 GM VIAL ONE (08:37)
[2022-02-20] MEDS ORDERED: DEXAMETHASONE SOD PHOSPHATE 4 MG/1 ML VIAL ONE (08:38)
[2022-02-20] MEDS ORDERED: KETOROLAC TROMETHAMINE 30 MG/1 ML VIAL ONE (08:38)
[2022-02-20] MEDS ORDERED: ONDANSETRON 4 MG/2 ML VIAL ONE (08:38)
[2022-02-20] MEDS ORDERED: BUPIVACAINE HCL/PF 0.25% (2.5MG/ML) 10 ML VIAL STI ONE (09:10)
[2022-02-20] MEDS ORDERED: PROMETHAZINE HCL 25 MG/1 ML VIAL IVPUSH PRN (09:27)
[2022-02-20] MEDS ORDERED: oxyCODONE HCL 5 MG TABLET PO PRN ×2 (09:27)
[2022-02-20] MEDS ORDERED: ONDANSETRON 4 MG/2 ML VIAL IVPUSH PRN (09:27)
[2022-02-20] MEDS ORDERED: LACTATED RINGERS SOLUTION 1,000 ML IV SCH (09:30)
[2022-02-20 10:30] VITALS: RESP 16; TEMP 97.5
[2022-02-20 11:17] VITALS: BP 123/69; PULSE 71
== END 2022-02-20 11:10 | disposition home or self-care (01) ==
LOC: FASU 06:58
PROVIDERS: ATTEND Orthopaedic Surgery
PROC: 0SBD4ZZ Excision of Left Knee Joint, Percutaneous Endoscopic Approach (ICD-10-PCS; principal; 2022-02-20 08:55)
DX: S83.242A Other tear of medial meniscus, current injury, left knee, initial encounter (principal); S83.282A Other tear of lateral meniscus, current injury, left knee, initial encounter; S83.8X2A Sprain of other specified parts of left knee, initial encounter; M65.862 Other synovitis and tenosynovitis, left lower leg; X58.XXXA Exposure to other specified factors, initial encounter; Y93.9 Activity, unspecified; Y92.9 Unspecified place or not applicable
CPT/HCPCS: 94760

== ENCOUNTER 2023-04-15 16:08 | Observation (INO) | payer OTHER ==
[2023-04-15 17:43] LABS: BASO % 0.6 % (0-2.0); EOS % 1.5 % (0-4.5); HEMATOCRIT 28.4 % (35.4-49); HEMOGLOBIN 9.3 GM/dL (11.7-16.9); LYMPH % 3.4 % (8-40); MCHC 32.8 g/dl (32.0-35.9); MEAN CELL VOLUME 103.7 fl (80-96); MEAN PLT VOLUME 7.9 fl (7.5-11.1); MONO % 7.7 % (3.8-10.2); NEUT % 86.8 % (42.8-82.8); PLATELET COUNT 303 10^3/uL (134-434); RBC 2.74 M/mm3 (4.00-5.60); RDW 17.1 % (11.9-15.9); WHITE BLOOD COUNT 8.1 K/mm3 (4.0-10.0)
[2023-04-15 17:55] LABS: INR 1.16 (0.83-1.09); PROTHROMBIN TIME (PATIENT) 13.4 SEC (9.7-13.0)
[2023-04-15 18:01] LABS: POTASSIUM 4.4 mmol/L (3.5-5.1)
[2023-04-15 18:03] LABS: CALCIUM 8.9 mg/dL (8.5-10.1)
[2023-04-15 18:04] LABS: ALBUMIN 3.4 g/dl (3.4-5.0)
[2023-04-15 18:07] LABS: CREATININE 1.5 mg/dL (0.55-1.3)
[2023-04-15 18:09] LABS: BILIRUBIN,TOTAL 1.1 mg/dL (0.2-1)
[2023-04-15] MEDS ORDERED: SODIUM CHLORIDE 0.9% 500 ML INFUS.BAG IV ONE (21:07)
[2023-04-15] MEDS ORDERED: HEPARIN NA (PORCINE) 5,000 UNITS/ML 1ML VIAL ONE (22:59)
[2023-04-15] MEDS: HEPARIN NA (PORCINE) 5,000 UNITS/ML 1ML VIAL SQ SCH (23:06)
[2023-04-16] MEDS ORDERED: PIPERACILLIN/TAZOB 3.375 GM 3.375 GM in DEXTROSE 5%-WATER - 50 ML IVPB SCH (05:45)
[2023-04-16] MEDS ORDERED: LEVOTHYROXINE NA 50 MCG TABLET (FP) ONE (05:50)
[2023-04-16] MEDS ORDERED: PIPERACILLIN/TAZOB 3.375 GM 3.375 GM/50 ML BAG IVPB ONE (05:50)
[2023-04-16] MEDS ORDERED: LEVOTHYROXINE NA 75 MCG TABLET (FP) ONE (05:50)
[2023-04-16] MEDS ORDERED: HEPARIN NA (PORCINE) 5,000 UNITS/ML 1ML VIAL ONE (05:51)
[2023-04-16] MEDS: PIPERACILLIN/TAZOB 3.375 GM 3.375 GM in DEXTROSE 5%-WATER - 50 ML IVPB SCH ×2 (06:15→15:57)
[2023-04-16] MEDS: HEPARIN NA (PORCINE) 5,000 UNITS/ML 1ML VIAL SQ SCH ×2 (06:16→14:11)
[2023-04-16] MEDS ORDERED: LEVOTHYROXINE NA 125 MCG TABLET (FP) PO SCH (07:00)
[2023-04-16 07:49] LABS: BASO % 1.2 % (0-2.0); EOS % 2.1 % (0-4.5); HEMATOCRIT 29.2 % (35.4-49); HEMOGLOBIN 9.7 GM/dL (11.7-16.9); LYMPH % 5.1 % (8-40); MCH 34.4 pg (25.7-33.7); MCHC 33.1 g/dl (32.0-35.9); MEAN PLT VOLUME 8.8 fl (7.5-11.1); MONO % 7.4 % (3.8-10.2); NEUT % 84.2 % (42.8-82.8); PLATELET COUNT 309 10^3/uL (134-434); RBC 2.81 M/mm3 (4.00-5.60); WHITE BLOOD COUNT 8.4 K/mm3 (4.0-10.0)
[2023-04-16 08:26] LABS: POTASSIUM 4.3 mmol/L (3.5-5.1)
[2023-04-16 08:36] LABS: ALBUMIN 3.4 g/dl (3.4-5.0); CALCIUM 9.1 mg/dL (8.5-10.1)
[2023-04-16 08:37] LABS: BLOOD UREA NITROGEN 22.1 mg/dL (7-18); MAGNESIUM 2.2 mg/dL (1.8-2.4)
[2023-04-16 08:39] LABS: CREATININE 1.3 mg/dL (0.55-1.3); PHOSPHOROUS 3.2 mg/dL (2.5-4.9)
[2023-04-16 08:41] LABS: BILIRUBIN,TOTAL 1.4 mg/dL (0.2-1); TOT PROT 7.1 g/dl (6.4-8.2)
[2023-04-16] MEDS ORDERED: amLODIPine BESYLATE 2.5 MG TABLET (FP) PO SCH (10:00)
[2023-04-16] MEDS ORDERED: ENOXAPARIN NA (PORCINE) 40 MG/0.4 ML DISP.SYRIN SQ SCH (10:00)
[2023-04-16 11:49] VITALS: RESP 20; TEMP 97.4
[2023-04-16 12:20] VITALS: BP 124/66; PULSE 124; BMI 21.3
[2023-04-21 16:08] LABS: ATYPICAL pANCA <1:20 titer (Neg:<1:20); C-ANCA <1:20 titer (Neg:<1:20)
== END 2023-04-16 16:22 | disposition home or self-care (01) ==
LOC: JER 16:08 → JERBED 21:02 → J8W 04-16 12:00
PROVIDERS: ADMIT Internal Medicine; ATTEND Internal Medicine
PROC: 3E0337Z Introduction of Electrolytic and Water Balance Substance into Peripheral Vein, Percutaneous Approach (ICD-10-PCS; principal; 2023-04-15)
DX: J93.83 Other pneumothorax (principal); G47.33 Obstructive sleep apnea (adult) (pediatric); Z85.46 Personal history of malignant neoplasm of prostate; I10 Essential (primary) hypertension; Z99.81 Dependence on supplemental oxygen; R06.02 Shortness of breath; Z87.891 Personal history of nicotine dependence; R63.4 Abnormal weight loss; R68.81 Early satiety; Z90.89 Acquired absence of other organs; R05.9 Cough, unspecified; E03.9 Hypothyroidism, unspecified; G47.30 Sleep apnea, unspecified; D64.9 Anemia, unspecified
CPT/HCPCS: 0241U-QW; 36415; 71045-TC-FY; 71250-TC; 80053; 82308; 82607; 82746; 83520; 83615; 83735; 84100; 85025; 85610; 85651; 85730; 86038; 86140; 86160; 86162; 86256; 86850; 86870; 86880; 86900; 86901; 86902; 93005; 93010; 93306-TC; 94640; 99285-25; G0378; J1644

== ENCOUNTER 2024-03-31 15:58 | Emergency (ER) | payer OTHER ==
[2024-03-31 16:28] VITALS: BP 138/77; PULSE 80; RESP 20; TEMP 97.3; BMI 20.7
[2024-03-31] MEDS ORDERED: LIDOCAINE 5% TOPICAL PATCH ONE (17:15)
[2024-03-31] MEDS: LIDOCAINE 5% TOPICAL PATCH TP ONE (17:20)
[2024-03-31] MEDS ORDERED: LIDOCAINE PATCH REMOVAL MC SCH (22:00)
== END 2024-03-31 18:40 | disposition home or self-care (01) ==
LOC: FER 15:58
DX: M54.6 Pain in thoracic spine (principal)
CPT/HCPCS: 72128-TC; 72131-TC; 99284-25